=== PATIENT | female | born 1985 | race Caucasian/White ===

== ENCOUNTER 2016-11-14 15:59 | Emergency (ER) | payer OTHER ==
[~2016-11-14] VITALS: Ht 162.5 cm; Wt 99.8 kg
[~2016-11-14 15:59] MED LIST: 'zithromax250 MG PO; AMBIEN10 M1 PO; ANAPROX DS550 MG PO; ATARAX,VISTARIL50 MG PO; ATIVAN1 MG PO; AUGMENTIN 875 M1 TAB PO; CELEXA10 MG PO; CIPRO500 MG PO; CLARITIN10 MG PO; CLINDAMYCIN HC300 MG PO; DONNATAL1 TAB PO; FLAGYL500 MG PO; HYDROCODONE BIT1 T11 PO; K-DUR 20MEQ20 MEQ PO; MACROBID100 M1 PO; MOTRIN800 MG PO; OMNICEF300 MG PO; PHENERGAN25 M1 PO; PREDNISONE10 MG PO; PREDNISONE20 M1 PO; ROBITUSSIN AC 110 ML PO; TRAZADONE HYDR100 MG PO; VIBRAMYCIN100 MG PO; VICODIN 5/500 505 MG PO; VICODIN 500 MG-1 TAB PO; ZOFRAN ODT4 MG SL; ZOFRAN4 MG PO
[2016-11-14 16:04] VITALS: BP 153/103
[2016-11-14] MEDS ORDERED: CELEXA10 MG PO (16:05)
[2016-11-14] MEDS ORDERED: AMBIEN5 MG PO (16:05)
[2016-11-14 16:41] LABS: BASO % 0.3 % (0.0-1.0); EOS # 0.1 10*3/uL (0.0-0.4); EOS % 0.5 % (1.0-4.0); HEMATOCRIT 38.3 % (37.0-47.0); HEMOGLOBIN 12.6 g/dl (12.0-16.0); IG # 0.1 10*3/uL (0.0-0.1); LYMPH # 4.1 10*3/uL (1.3-4.4); LYMPH % 30.1 % (27.0-41.0); MEAN CELL VOLUME 86.5 fl (81.0-99.0); MEAN CORPUSCULAR HGB 28.4 pg (27.0-31.0); MEAN CORPUSCULAR HGB CONC 32.9 g/dl (33.0-37.0); MEAN PLATELET VOLUME 9.7 fl (9.6-12.3); MONO # 0.6 10*3/uL (0.1-1.0); MONO % 4.6 % (3.0-9.0); NEUT # 8.6 10*3/uL (2.3-7.9); NEUT % 64.1 % (47.0-73.0); PLATELET COUNT AUTOMATED 363 10*3/uL (130-400); RED BLOOD COUNT 4.43 10*6/uL (4.10-5.10); WHITE BLOOD COUNT 13.5 10*3/uL (4.8-10.8)
[2016-11-14 17:04] LABS: ALBUMIN 3.5 gm/dl (3.1-4.5); ALKALINE PHOSPHATASE 56 U/L (45-117); BILIRUBIN, TOTAL 0.3 mg/dl (0.2-1.0); BUN 15 mg/dl (7-24); CARBON DIOXIDE 25 mmol/L (21-32); CHLORIDE 106 mmol/L (98-107); EST GLOM FILT AFRICAN AMERICAN > 60 ml/min; GLUCOSE 136 mg/dL (65-99); POTASSIUM 3.8 mmol/L (3.5-5.1); SGOT/AST 24 IU/L (3-35); SGPT/ALT 35 U/L (12-78); SODIUM 141 mmol/L (136-145); TOTAL PROTEIN 7.3 gm/dL (6.4-8.2)
[2016-11-14 17:14] LABS: BILIRUBIN NEGATIVE (NEGATIVE); BLOOD TRACE-LYSED (NEGATIVE); CLARITY SL CLOUDY (CLEAR); COLOR YELLOW (YELLOW); GLUCOSE NEGATIVE (NEGATIVE); KETONE NEGATIVE (NEGATIVE); LEUKO ESTERASE 1+ (NEGATIVE); NITRITE NEGATIVE (NEGATIVE); PH 5.5 (5.0-9.0); PROTEIN TRACE (NEGATIVE); SPECIFIC GRAVITY >= 1.030 (1.005-1.030)
[2016-11-14 17:26] LABS: BACTERIA 2+; EPITHELIAL CELLS TNTC; URINE REFLEX COMMENT YES (NO); WBC 31-40 wbc/hpf (0-5)
[2016-11-14] MEDS ORDERED: MACROBID100 M1 PO (17:28)
== END 2016-11-14 18:55 | disposition home or self-care (01) ==
LOC: ED 15:59
PROVIDERS: Physician Assistant
DX: R60.0 Localized edema (principal); R03.0 Elevated blood-pressure reading, without diagnosis of hypertension; N30.01 Acute cystitis with hematuria; Z79.899 Other long term (current) drug therapy

== ENCOUNTER 2016-12-29 00:35 | Emergency (ER) | payer OTHER ==
[~2016-12-29] VITALS: Ht 162.5 cm; Wt 98.0 kg
[~2016-12-29 00:35] MED LIST changes: +AMBIEN5 MG PO
[2016-12-29 00:38] VITALS: BP 145/100
[2016-12-29] MEDS ORDERED: BENADRYL ALLERG25 M5 PO (00:48)
== END 2016-12-29 01:22 | disposition home or self-care (01) ==
LOC: ED 00:35
DX: L24.0 Irritant contact dermatitis due to detergents (principal); Z90.49 Acquired absence of other specified parts of digestive tract; Z98.890 Other specified postprocedural states; Z79.899 Other long term (current) drug therapy

== ENCOUNTER 2017-04-13 09:05 | Emergency (ER) | payer OTHER ==
[~2017-04-13] VITALS: Ht 162.5 cm; Wt 97.1 kg
[~2017-04-13 09:05] MED LIST changes: +BENADRYL ALLERG25 M5 PO
[2017-04-13 09:11] VITALS: BP 122/77
[2017-04-13] MEDS ORDERED: PREDNISONE10 MG PO (09:11)
== END 2017-04-13 11:39 | disposition home or self-care (01) ==
LOC: ED 09:05
DX: L23.7 Allergic contact dermatitis due to plants, except food (principal); R03.0 Elevated blood-pressure reading, without diagnosis of hypertension; Z79.899 Other long term (current) drug therapy

== ENCOUNTER 2018-05-26 11:17 | Emergency (ER) | payer OTHER ==
[~2018-05-26] VITALS: Ht 162.5 cm; Wt 104.3 kg
[~2018-05-26 11:17] MED LIST changes: +SEROQUEL25 MG PO
[2018-05-26 11:18] VITALS: BP 152/87
[2018-05-26] MEDS ORDERED: NAPROSYN500 MG PO (11:37)
[2018-05-26] MEDS ORDERED: ZOFRAN4 MG PO (11:37)
[2018-05-26] MEDS ORDERED: AUGMENTIN 500500 M1 PO (11:37)
== END 2018-05-26 11:50 | disposition home or self-care (01) ==
LOC: ED 11:17
DX: K04.7 Periapical abscess without sinus (principal); R03.0 Elevated blood-pressure reading, without diagnosis of hypertension; Z79.899 Other long term (current) drug therapy; Z90.49 Acquired absence of other specified parts of digestive tract

== ENCOUNTER → 2018-11-24 | Outpatient (CLI) | payer OTHER ==
[~2018-11-24] MED LIST changes: +AUGMENTIN 500500 M1 PO; +NAPROSYN500 MG PO; +NORCO 5-325 TA1 EACH PO; +PREDNISONE50 MG PO; +TRAZODONE50 MG PO; +VISTARIL25 MG PO; +VISTARIL50 MG PO
== END | disposition home or self-care (01) ==
LOC: ORTHO 00:43
DX: M25.532 Pain in left wrist (principal)

== ENCOUNTER → 2018-12-01 | Outpatient (CLI) | payer OTHER | END | disposition home or self-care (01) | LOC: MRI 08:48 | DX: M19.042 Primary osteoarthritis, left hand (principal); M79.9 Soft tissue disorder, unspecified ==

== ENCOUNTER 2018-12-21 00:33 | Emergency (ER) | payer OTHER ==
[~2018-12-21] VITALS: Ht 162.5 cm; Wt 104.3 kg
[~2018-12-21 00:33] MED LIST changes: -NORCO 5-325 TA1 EACH PO; -TRAZODONE50 MG PO; -VISTARIL50 MG PO
[2018-12-21 00:35] VITALS: BP 157/110
[2018-12-21] MEDS ORDERED: PREDNISONE10 MG PO (00:54)
[2018-12-25] MEDS ORDERED: TRAZODONE50 MG PO (13:27)
[2018-12-25] MEDS ORDERED: AMBIEN5 MG PO (13:28)
[2019-01-01] MEDS ORDERED: NORCO 5-325 TA1 EACH PO (10:45)
[2019-01-18] MEDS ORDERED: PREDNISONE10 MG PO (01:00)
[2019-01-18] MEDS ORDERED: VISTARIL50 MG PO (01:01)
== END 2018-12-21 01:55 | disposition home or self-care (01) ==
LOC: ED 00:33
DX: L25.9 Unspecified contact dermatitis, unspecified cause (principal); Z79.899 Other long term (current) drug therapy

== ENCOUNTER → 2018-12-30 | Outpatient (CLI) | payer OTHER ==
[~2018-12-30] MED LIST changes: +NORCO 5-325 TA1 EACH PO; +TRAZODONE50 MG PO
[2018-12-30 11:55] LABS: BASO # 0.1 10*3/uL (0.0-0.1); BASO % 0.5 % (0.0-1.0); EOS # 0.2 10*3/uL (0.0-0.4); EOS % 1.6 % (1.0-4.0); HEMATOCRIT 40.8 % (37.0-47.0); HEMOGLOBIN 13.2 g/dl (12.0-16.0); LYMPH # 4.9 10*3/uL (1.3-4.4); LYMPH % 46.2 % (27.0-41.0); MEAN CELL VOLUME 88.9 fl (81.0-99.0); MEAN CORPUSCULAR HGB 28.8 pg (27.0-31.0); MEAN CORPUSCULAR HGB CONC 32.4 g/dl (33.0-37.0); MEAN PLATELET VOLUME 9.5 fl (9.6-12.3); MONO # 0.8 10*3/uL (0.1-1.0); MONO % 7.3 % (3.0-9.0); NEUT # 4.7 10*3/uL (2.3-7.9); NEUT % 43.8 % (47.0-73.0); PLATELET COUNT AUTOMATED 448 10*3/uL (130-400); RED BLOOD COUNT 4.59 10*6/uL (4.10-5.10); RED CELL DISTRI WIDTH 13.3 % (0-14.5); WHITE BLOOD COUNT 10.7 10*3/uL (4.8-10.8)
== END | disposition home or self-care (01) ==
LOC: LAB 11:19
PROVIDERS: Orthopaedic Surgery
DX: Z01.818 Encounter for other preprocedural examination (principal)

== ENCOUNTER → 2019-01-01 | Day surgery (SDC) | payer OTHER ==
[~2019-01-01] MED LIST changes: +VISTARIL50 MG PO
--- NOTE | ~2019-01-01 | EKG ---
[place], [place] ELECTROCARDIOGRAM REPORT NAME: TREVOR RDZ UNIT #: [id number] ROOM: DOCTOR: CARLOS DRAFT REPORT BIRTHDATE: [birth year] [facility] Test Date: 2018-12-25 Test Time: 14:06:44 Pat Name: TREVOR RDZ Department: Room: Gender: F Tree [employer]: Fallon Childress : 1985 Requested By: MAHESH LEE Order Number: [id number] Reading MD: Cuong Murray Measurements Intervals [place] Rate: 62 P: 18 MT: 160 QRS: 0 QRSD: 85 T: 8 QT: 409 QTc: 416 Interpretive Statements Sinus arrhythmia LVH by voltage Borderline T abnormalities, inferior leads Baseline wander in lead(s) I,III,aVL,aVF No previous ECG available for comparison Electronically Signed On 12-26-2018 12:27:17 PDT by Cuong Murray CM:EKGRPT:ELECTROCARDIOGRAM REPORT [id number] MAHESH SKAGGS DRAFT REPORT MAHESH LEE DO
--- NOTE | ~2019-01-01 | O ---
[place], [place] OPERATIVE NOTE NAME: TREVOR RDZ [facility] #: [id number] UNIT #: [id number] ROOM: DOCTOR: MAHESH GREENWOOD DO BIRTHDATE: [birth year] DOS: 01/01/2019 PREOPERATIVE DIAGNOSIS: Left wrist dorsal ganglion. POSTOPERATIVE DIAGNOSIS: Left wrist dorsal ganglion. OPERATIVE PROCEDURE: Left wrist excision of multiple dorsal ganglions. SURGEON: Mahesh Greenwood DO INSTRUMENTATION SPECIALIST: Fatou. ANESTHESIA: Joanne, general with LMA intubation. INDICATIONS: The patient is a 33-year-old female with a history of a painful multiloculated ganglion at the dorsal left wrist. This was unrelieved with conservative treatment including aspiration, compression and bracing. The risks and benefits of the procedure were explained to the patient preoperatively. Preoperative labs and x-rays were obtained. PROCEDURE IN DETAIL: The left wrist was marked in the holding area. The patient was brought to the operative suite. The patient was placed supine on the operative table. A general anesthetic with LMA intubation was performed. The left upper extremity was prepped and draped in the usual orthopedic fashion. The timeout was performed. The incision was planned in a V-shaped fashion over the ganglion at the dorsal radial side of the wrist. This was marked with a marking pen. The extremity was elevated and the tourniquet was inflated to 250 mmHg. Under loupe magnification, the incision was made sharply with the scalpel. Subcutaneous tissue was spread down to the level of the ganglion. This was noted to be multiloculated and appeared to consist of several different ganglions. These were followed down to the radial carpal joint and the scapholunate joint. There were noted to be multiple ganglions. These were removed at the level of their origin. There was a thick clear gel noted within the cystic capsule. The excised ganglion was sent to the lab for further study. The wrist was again evaluated and no further ganglions remained. The area was copiously irrigated with normal saline. The incision was closed in a horizontal mattress suture fashion with 4-0 Prolene. The area was injected with Marcaine. Xeroform, 4 x 4s, and a well-padded volar splint was applied. The tourniquet was released. Sponge and needle count correct. ESTIMATED BLOOD LOSS: None. The anesthetic was reversed. The patient was extubated and taken to the recovery room in satisfactory condition. SPECIMENS: Apparent ganglions with gelatinous material, were sent to lab for further study. [place], [place] OPERATIVE NOTE NAME: TREVOR RDZ UNIT #: [id number] ROOM: DOCTOR: MAHESH GREENWOOD DO BIRTHDATE: [birth year] DRAINS: None. PACKING: None. COMPLICATIONS: None. FINDINGS: Multiple volar wrist ganglions. MAHESH GREENWOOD DO CM:OPRECORD:OPERATIVE NOTE [id number] MAHESH GREENWOOD DO 01/15/19 2257 interface
[2019-01-01 08:06] VITALS: BP 132/81
[2019-01-01 10:06] VITALS: BP 115/52
[2019-01-01 10:20] VITALS: BP 110/68
[2019-01-01 10:35] VITALS: BP 101/56
[2019-01-01 10:50] VITALS: BP 121/64
[2019-01-01 11:05] VITALS: BP 124/75
== END | disposition home or self-care (01) ==
LOC: SDC 12-25 13:15
DX: M67.432 Ganglion, left wrist (principal); F41.9 Anxiety disorder, unspecified; M79.9 Soft tissue disorder, unspecified; F32.9 Major depressive disorder, single episode, unspecified; E66.9 Obesity, unspecified; Z79.899 Other long term (current) drug therapy; Z90.49 Acquired absence of other specified parts of digestive tract; Z80.9 Family history of malignant neoplasm, unspecified; Z68.41 Body mass index [BMI] 40.0-44.9, adult; Z98.890 Other specified postprocedural states

== ENCOUNTER → 2019-07-02 | Outpatient (CLI) | payer OTHER ==
[2019-07-02 09:42] LABS: ALBUMIN 3.6 gm/dl (3.1-4.5); BUN 14 mg/dl (7-24); CHLORIDE 110 mmol/L (98-107); POTASSIUM 3.9 mmol/L (3.5-5.1); SODIUM 139 mmol/L (136-145)
[2019-07-02 09:53] LABS: ALKALINE PHOSPHATASE 40 U/L (45-117); CREATININE 0.82 mg/dL (0.55-1.02); FREE T4 0.84 ng/dl (0.76-1.46); SGOT/AST 22 IU/L (3-35); SGPT/ALT 44 U/L (12-78); TOTAL PROTEIN 7.1 gm/dL (6.4-8.2)
[2019-07-03 07:06] LABS: FOLLICLE STIMULATING HORMONE 1.9 mIU/mL (.); LUTEINIZING HORMONE 004283 3.4 mIU/mL (.)
== END | disposition home or self-care (01) ==
LOC: LAB 08:29
PROVIDERS: Internal Medicine
DX: N91.2 Amenorrhea, unspecified (principal)

== ENCOUNTER 2019-08-14 17:26 | Emergency (ER) | payer OTHER ==
[~2019-08-14] VITALS: Ht 162.5 cm; Wt 106.6 kg
[2019-08-14 17:39] VITALS: BP 130/87
== END 2019-08-14 19:03 | disposition home or self-care (01) ==
LOC: ED 17:26
DX: H61.21 Impacted cerumen, right ear (principal); Z79.2 Long term (current) use of antibiotics; Z79.899 Other long term (current) drug therapy; Z90.49 Acquired absence of other specified parts of digestive tract

== ENCOUNTER 2020-03-30 16:16 | Emergency (ER) | payer OTHER ==
[~2020-03-30] VITALS: Ht 162.5 cm; Wt 104.3 kg
[2020-03-30 16:26] VITALS: BP 127/81
[2020-03-30] MEDS ORDERED: Motrin,Rufen800 MG PO (18:28)
[2020-03-30] MEDS ORDERED: CYCLOBENZAPRINE5 M3 PO (18:28)
== END 2020-03-30 18:35 | disposition home or self-care (01) ==
LOC: ED 16:16
DX: M54.16 Radiculopathy, lumbar region (principal); Z79.899 Other long term (current) drug therapy

== ENCOUNTER → 2021-02-15 | Outpatient (CLI) | payer OTHER ==
[~2021-02-15] MED LIST changes: +CYCLOBENZAPRINE5 M3 PO; +Motrin,Rufen800 MG PO
== END | disposition home or self-care (01) ==
LOC: COVID19 16:12
PROVIDERS: ATTEND Internal Medicine
DX: U07.1 COVID-19 (principal)

== ENCOUNTER → 2023-10-25 | Outpatient (CLI) | payer OTHER | END | disposition home or self-care (01) | LOC: ORTHO 01:35 | PROVIDERS: ATTEND Orthopaedic Surgery | DX: M67.432 Ganglion, left wrist (principal) ==

== ENCOUNTER → 2023-12-17 | Day surgery (SDC) | payer OTHER ==
[~2023-12-17] VITALS: Ht 162.5 cm; Wt 120.7 kg
[~2023-12-17] MED LIST changes: +BUPIVACAINE 0.5% 0 ML IV ONE; +Lactated Ringer's Solution 1,000 ML IV ONE; +Lactated Ringer's Solution 1,000 ML IV SCH; +Lidocaine Hydrochloride 2% 10 ML AMP IM ONE; +Lidocaine Hydrochloride 30 ML VIAL ONE; +Midazolam Hydrochloride 2 MG/2 ML VIAL IV ONE; +Ondansetron Hydrochloride 4 MG/2 ML VIAL IV ONE; +PROPOFOL 200 MG/20 ML VIAL IV ONE; +ceFAZolin sodium 2GM/20ML IV ONE; +ceFAZolin sodium/sodium chlor 20 ML IV ONE; +fentaNYL CITRATE 100 MCG/2 ML VIAL IV ONE
[2023-12-17 07:11] VITALS: BP 140/89
[2023-12-17 08:12] VITALS: BP 146/92
[2023-12-17 08:27] VITALS: BP 122/91
[2023-12-17 08:42] VITALS: BP 133/91
== END | disposition home or self-care (01) ==
LOC: SDC 12-13 13:15
PROVIDERS: ATTEND Orthopaedic Surgery
DX: M67.432 Ganglion, left wrist (principal); R03.0 Elevated blood-pressure reading, without diagnosis of hypertension; G43.909 Migraine, unspecified, not intractable, without status migrainosus; F41.9 Anxiety disorder, unspecified; F32.A Depression, unspecified; Z90.49 Acquired absence of other specified parts of digestive tract; Z87.891 Personal history of nicotine dependence; Z87.440 Personal history of urinary (tract) infections; Z98.890 Other specified postprocedural states; Z79.899 Other long term (current) drug therapy

== ENCOUNTER 2024-06-30 16:44 | Emergency (ER) | payer OTHER ==
[~2024-06-30] VITALS: Ht 162.5 cm; Wt 121.1 kg
[~2024-06-30 16:44] MED LIST changes: -BUPIVACAINE 0.5% 0 ML IV ONE; -Lactated Ringer's Solution 1,000 ML IV ONE; -Lactated Ringer's Solution 1,000 ML IV SCH; -Lidocaine Hydrochloride 2% 10 ML AMP IM ONE; -Lidocaine Hydrochloride 30 ML VIAL ONE; -Midazolam Hydrochloride 2 MG/2 ML VIAL IV ONE; -Ondansetron Hydrochloride 4 MG/2 ML VIAL IV ONE; -PROPOFOL 200 MG/20 ML VIAL IV ONE; -ceFAZolin sodium 2GM/20ML IV ONE; -ceFAZolin sodium/sodium chlor 20 ML IV ONE; -fentaNYL CITRATE 100 MCG/2 ML VIAL IV ONE
[2024-06-30 17:31] LABS: BASO # 0.1 10*3/uL (0.0-0.1); BASO % 0.4 % (0.0-1.0); EOS # 0.2 10*3/uL (0.0-0.4); EOS % 1.2 % (1.0-4.0); HEMATOCRIT 42.5 % (37.0-47.0); MEAN CELL VOLUME 87.8 fl (81.0-99.0); MEAN CORPUSCULAR HGB 28.5 pg (27.0-31.0); MEAN CORPUSCULAR HGB CONC 32.5 g/dl (33.0-37.0); MEAN PLATELET VOLUME 9.2 fl (9.6-12.3); MONO # 0.7 10*3/uL (0.1-1.0); MONO % 5.2 % (3.0-9.0); NEUT # 8.3 10*3/uL (2.3-7.9); PLATELET COUNT AUTOMATED 439 10*3/uL (130-400); RED BLOOD COUNT 4.84 10*6/uL (4.10-5.10); RED CELL DISTRI WIDTH 13.2 % (0-14.5); WHITE BLOOD COUNT 13.4 10*3/uL (4.8-10.8)
[2024-06-30] MEDS ORDERED: HYDROXYZINE PAM25 M1 PO (17:42)
[2024-06-30] MEDS ORDERED: LORazepam 0.5 MG TAB PO ONE (18:05)
[2024-06-30 18:19] VITALS: BP 120/70
[2024-06-30 18:51] LABS: BUN 11 mg/dl (9-23); CHLORIDE 102 mmol/L (98-107); POTASSIUM 4.1 mmol/L (3.4-5.1)
[2024-06-30] MEDS ORDERED: MELOXICAM15 MG PO (18:53)
[2024-06-30] MEDS ORDERED: Acetaminophen/Oxycodone 5 MG/325 MG TABLET PO ONE (18:55)
== END 2024-06-30 18:57 | disposition home or self-care (01) ==
LOC: ED 16:44
PROVIDERS: Internal Medicine
DX: M94.0 Chondrocostal junction syndrome [Tietze] (principal); Z79.899 Other long term (current) drug therapy; Z90.49 Acquired absence of other specified parts of digestive tract; Z98.890 Other specified postprocedural states; R20.0 Anesthesia of skin; R11.0 Nausea

== ENCOUNTER 2024-09-21 12:45 | Emergency (ER) | payer OTHER ==
[~2024-09-21] VITALS: Ht 162.5 cm; Wt 127.0 kg
[~2024-09-21 12:45] MED LIST changes: +HYDROXYZINE PAM25 M1 PO; +MELOXICAM15 MG PO
[2024-09-21] MEDS ORDERED: IOHEXOL 350 MG/ML 100 ML VIAL IV ONE ×2 (13:40→13:58)
[2024-09-21] MEDS ORDERED: SODIUM CHLORIDE 0.9% 100 ML BAG IV ONE (13:40)
[2024-09-21] MEDS ORDERED: SODIUM CHLORIDE 0.9% 100 ML IV ONE (13:58)
[2024-09-21 14:06] LABS: BASO # 0.1 10*3/uL (0.0-0.1); BASO % 0.6 % (0.0-1.0); EOS # 0.1 10*3/uL (0.0-0.4); EOS % 1.5 % (1.0-4.0); HEMATOCRIT 37.9 % (37.0-47.0); MEAN CELL VOLUME 87.1 fl (81.0-99.0); MEAN CORPUSCULAR HGB 28.3 pg (27.0-31.0); MEAN CORPUSCULAR HGB CONC 32.5 g/dl (33.0-37.0); MEAN PLATELET VOLUME 8.8 fl (9.6-12.3); MONO # 0.7 10*3/uL (0.1-1.0); MONO % 7.9 % (3.0-9.0); NEUT # 4.7 10*3/uL (2.3-7.9); NEUT % 51.4 % (47.0-73.0); PLATELET COUNT AUTOMATED 407 10*3/uL (130-400); RED BLOOD COUNT 4.35 10*6/uL (4.10-5.10); RED CELL DISTRI WIDTH 12.9 % (0-14.5)
[2024-09-21 14:17] LABS: ACT PARTIAL THROMBO TIME 28.2 SECONDS (20.0-32.1)
[2024-09-21 14:37] LABS: ALKALINE PHOSPHATASE 52 U/L (46-116); BUN 13 mg/dl (9-23); CHLORIDE 103 mmol/L (98-107); POTASSIUM 3.9 mmol/L (3.4-5.1); SGPT/ALT 41 U/L (5-49); TOTAL PROTEIN 6.3 gm/dL (6.0-8.0)
[2024-09-21 15:50] VITALS: BP 149/99
[2024-09-21] MEDS ORDERED: predniSONE 20 MG TAB PO ONE (17:10)
[2024-09-21] MEDS ORDERED: ERYTHROMYCIN 1 GM TUBE OPH ONE (17:10)
[2024-09-21] MEDS ORDERED: valACYclovir Hydrochloride 500 MG CAP PO ONE (17:10)
[2024-09-21] MEDS ORDERED: VALTREX1000 MG PO (17:12)
[2024-09-21] MEDS ORDERED: PREDNISONE20 M1 PO (17:12)
== END 2024-09-21 17:54 | disposition home or self-care (01) ==
LOC: ED 12:45
PROVIDERS: Emergency Medicine
DX: G51.0 Bell's palsy (principal); R51.9 Headache, unspecified; Z79.899 Other long term (current) drug therapy; Z90.49 Acquired absence of other specified parts of digestive tract; Z98.890 Other specified postprocedural states

== ENCOUNTER 2024-12-16 17:05 | Emergency (ER) | payer OTHER ==
[~2024-12-16] VITALS: Wt 122.5 kg
[~2024-12-16 17:05] MED LIST changes: +VALTREX1000 MG PO
[2024-12-16 17:17] VITALS: BP 145/85
[2024-12-16] MEDS ORDERED: Dicyclomine Hydrochloride 20 MG/10 ML OSYR PO STA (17:40)
[2024-12-16] MEDS ORDERED: MG-AL HYDROXIDE/SIMETICONE 30 ML UDC PO STA (17:40)
[2024-12-16 17:41] LABS: BASO # 0.1 10*3/uL (0.0-0.1); BASO % 0.5 % (0.0-1.0); EOS # 0.2 10*3/uL (0.0-0.4); EOS % 1.4 % (1.0-4.0); MEAN CELL VOLUME 87.5 fl (81.0-99.0); MEAN CORPUSCULAR HGB 28.7 pg (27.0-31.0); MEAN PLATELET VOLUME 9.2 fl (9.6-12.3); MONO # 0.6 10*3/uL (0.1-1.0); MONO % 5.5 % (3.0-9.0); NEUT # 6.0 10*3/uL (2.3-7.9); NEUT % 54.2 % (47.0-73.0); NUCLEATED RED BLOOD CELL 0.0 % (0.0-0.0); NUCLEATED RED BLOOD CELL 0.0 10*3/uL (0.0-0.0); PLATELET COUNT AUTOMATED 383 10*3/uL (130-400); RED CELL DISTRI WIDTH 13.0 % (0-14.5)
[2024-12-16 17:52] LABS: ACT PARTIAL THROMBO TIME 28.1 SECONDS (20.0-32.1)
[2024-12-16 18:00] LABS: BUN 11 mg/dl (9-23)
[2024-12-16] MEDS ORDERED: CARAFATE1 G1 PO (18:29)
[2024-12-16] MEDS ORDERED: PROTONIX40 MG PO (18:29)
== END 2024-12-16 18:54 | disposition home or self-care (01) ==
LOC: ED 17:05
PROVIDERS: Internal Medicine
DX: K21.9 Gastro-esophageal reflux disease without esophagitis (principal); Z79.899 Other long term (current) drug therapy; Z90.49 Acquired absence of other specified parts of digestive tract

== ENCOUNTER 2025-02-05 01:20 | Emergency (ER) | payer OTHER ==
[~2025-02-05 01:20] MED LIST changes: +CARAFATE1 G1 PO; +PROTONIX40 MG PO
[2025-02-05 01:30] VITALS: BP 166/81
[2025-02-05] MEDS ORDERED: MG-AL HYDROXIDE/SIMETICONE 30 ML UDC PO STA (02:00)
[2025-02-05] MEDS ORDERED: Dicyclomine Hydrochloride 20 MG/10 ML OSYR PO STA (02:00)
[2025-02-05] MEDS ORDERED: SODIUM CHLORIDE 0.9% 1,000 ML IV ONE (02:00)
[2025-02-05] MEDS ORDERED: OMEPRAZOLE40 MG PO (02:45)
== END 2025-02-05 02:53 | disposition home or self-care (01) ==
LOC: ED 01:20
DX: K21.9 Gastro-esophageal reflux disease without esophagitis (principal); I10 Essential (primary) hypertension; F32.A Depression, unspecified; F41.9 Anxiety disorder, unspecified; Z79.899 Other long term (current) drug therapy; Z90.49 Acquired absence of other specified parts of digestive tract; Z98.890 Other specified postprocedural states

== ENCOUNTER → 2025-03-31 | Outpatient (CLI) | payer OTHER ==
[~2025-03-31] MED LIST changes: +OMEPRAZOLE40 MG PO
== END | disposition home or self-care (01) ==
LOC: RAD 13:26
PROVIDERS: ATTEND Internal Medicine
DX: M54.12 Radiculopathy, cervical region (principal); M54.2 Cervicalgia

== ENCOUNTER 2025-04-21 01:34 | Emergency (ER) | payer OTHER ==
[~2025-04-21] VITALS: Ht 162.5 cm; Wt 117.9 kg
[2025-04-21 01:44] VITALS: BP 157/104
[2025-04-21] MEDS ORDERED: SODIUM CHLORIDE 0.9% 1,000 ML IV ONE (04:50)
[2025-04-21] MEDS ORDERED: Ondansetron Hydrochloride 4 MG/2 ML VIAL IV ONE (04:50)
[2025-04-21] MEDS ORDERED: diphenhydrAMINE hydrochloride 50 MG/ML VIAL IV ONE (04:50)
== END 2025-04-21 06:19 | disposition home or self-care (01) ==
LOC: ED 01:34
DX: G43.909 Migraine, unspecified, not intractable, without status migrainosus (principal); F41.9 Anxiety disorder, unspecified; I10 Essential (primary) hypertension; F31.9 Bipolar disorder, unspecified; Z90.49 Acquired absence of other specified parts of digestive tract; Z98.890 Other specified postprocedural states